=== PATIENT | female | born 1980 | race Caucasian/White ===

== ENCOUNTER 2020-03-03 08:00 | Outpatient (CLI) | payer SELFPAY | END 2020-03-03 23:59 | disposition home or self-care (01) | LOC: LAB.R 08:00 | PROVIDERS: ATTEND Physician Assistant Medical | DX: R06.02 Shortness of breath (principal); Z20.828 Contact with and (suspected) exposure to other viral communicable diseases | CPT/HCPCS: 87275; 87276 ==

== ENCOUNTER 2020-03-03 10:43 | Outpatient (CLI) | payer SELFPAY ==
--- NOTE | 2020-03-03 11:23 | XRAY Report ---
PROCEDURE: Chest 2 View X-Ray INDICATIONS: SHORTNESS OF BREATH TECHNIQUE: 2 view(s) of the chest. COMPARISON: None. FINDINGS: Surgical changes and devices: None. Lungs and pleura: No pleural effusions or pneumothorax. Patchy bilateral pulmonary opacities are pre sent as well as increased vascularity. Mediastinum: Mediastinal contours are normal. Heart size is enlarged. Bones and chest wall: No suspicious bony abnormalities. Soft tissues appear unremarkable. IMPRESSION: Patchy bilateral pulmonary opacities suggestive of airspace disease such as pneumonia. R ecommend interval follow-up to document resolution and exclude presence of underlying mass lesion. Reviewed by: Rebecca Owens MD on 03/03/2020 11:22 AM PST Approved by: Rebecca Owens MD on 03/03/2020 11:22 AM PST Station ID: [id number]
== END 2020-03-03 10:44 | disposition home or self-care (01) ==
LOC: DI.S 10:43
PROVIDERS: ATTEND Physician Assistant Medical
DX: R91.8 Other nonspecific abnormal finding of lung field (principal)
CPT/HCPCS: 71046